=== PATIENT | male | born 1970 | race Caucasian/White ===

== ENCOUNTER → 2020-02-04 11:41 | Outpatient (BNVA) | payer BC, SELFPAY | PROVIDERS: Family Provider Nurse Practitioner; Visit Provider Nurse Practitioner Family | DX: E78.00 Pure hypercholesterolemia, unspecified (principal); I10 Essential (primary) hypertension; Z79.899 Other long term (current) drug therapy; R53.83 Other fatigue; E55.9 Vitamin D deficiency, unspecified | CPT/HCPCS: 80053; 80061; 81001; 82306; 83036; 84443; 85025 ==

== ENCOUNTER → 2021-01-12 14:32 | Outpatient (BNVA) | payer BC, SELFPAY | PROVIDERS: Family Provider Nurse Practitioner; PCP Nurse Practitioner Family; Visit Provider Nurse Practitioner Family | DX: D64.9 Anemia, unspecified (principal); Z79.899 Other long term (current) drug therapy; R53.83 Other fatigue; R33.9 Retention of urine, unspecified; Z13.6 Encounter for screening for cardiovascular disorders; I10 Essential (primary) hypertension; E55.9 Vitamin D deficiency, unspecified | CPT/HCPCS: 80053; 80061; 81003; 82306; 82607; 83036; 83550; 84439; 84443; 84481; 85025; G0103 ==

== ENCOUNTER → 2021-02-06 08:32 | Outpatient (BNVA) | payer BC, SELFPAY | PROVIDERS: Family Provider Nurse Practitioner; PCP Nurse Practitioner Family; Visit Provider Internal Medicine | DX: Z01.812 Encounter for preprocedural laboratory examination (principal); Z12.11 Encounter for screening for malignant neoplasm of colon; Z20.822 Contact with and (suspected) exposure to COVID-19 | CPT/HCPCS: 87635 ==

== ENCOUNTER 2021-02-10 08:21 | Day surgery (SDC) | payer BC, SELFPAY ==
[2021-02-08 13:34] VITALS: BMI 34.2
--- NOTE | 2021-02-10 09:02 | P.ANESASSM_ITS ---
Pre-Anesthetic Assessment Pre-Anesthetic Assessment: Height/Weight: Height 1.73 m Weight 102.058 kg Preop Diagnosis: screen Proposed Procedure: Operation Date: 02/10/21 09:45 Proposed Procedures p Colonoscopy G0121 Z12.11(Not Applicable) - Indra Milan MD Was Beta Fredo taken within 24 hours: N/A Was Clonidine taken within 24 hours: N/A Social: Social History: No alcohol and No tobacco Exam: Pre-Anes Outpt Exam: alert, oriented x 3, clear to auscultation bilaterally and regular rate & rhythm Airway: Submandibular: WNL Cervical ROM: WNL MP: 2 Dentition: Full CV/HEM: CV/HEM: Anemia and HTN GI: GI: GERD Metabolic: Metabolic: Hyperlipidemia and Morbid obesity Anesthetic Plan: ASA status: 2 Anesthesia: MAC Risk of > 500 ml blood loss (7ml/kg in children): No PFSH Anesthesia 2 PFSH: Medical History Anemia Colon cancer screening Environmental and seasonal allergies Fatigue GERD (gastroesophageal reflux disease) Hyperlipemia Hypertension Hypertension screen Incomplete bladder emptying Medication management Sinusitis Vitamin D deficiency Surgical History History of shoulder surgery History of surgery on arm Family History Brother FH: colon polyps Other Cancer Social History Smoking and tobacco status: never smoked Alcohol intake: never Data Anesthesia Cardiac Studies: No Data to Display
[2021-02-10 09:11] VITALS: BP 125/85; PULSE 56; RESP 18; TEMP 36.4; O2SAT 98
[2021-02-10] MEDS: sodium chloride 0.9% 1,000 ML 30 ML IV (09:44)
--- NOTE | 2021-02-10 09:54 | W.PM.OPSFHP ---
Same Day Surgery H&P Indication for Procedure/HPI DATE OF PROCEDURE: February 10, 2021 CHIEF COMPLAINT/INDICATIONFOR SURGICAL PROCEDURE: Screening colonoscopy PREOP DIAGNOSIS: screen PLANNED PROCEDRUE: Operation Date: 02/10/21 09:45 Proposed Procedures p Colonoscopy G0121 Z12.11(Not Applicable) - Indra Milan MD Medications/Allergies* Allergies/Adverse Reactions Allergy/AdvReac Type Severity Reaction Status Date / Time NICOLE Inhibitors AdvReac Mild ADR-Cough Verified 01/30/21 13:44 Current Medications: Generic Name Dose Route Start Last Admin Trade Name Freq PRN Reason Stop Dose Admin Sodium Chloride 1,000 mls @ 30 mls/hr 02/10/21 09:00 02/10/21 09:44 Sodium Chloride 0.9% IV 30 mls/hr .Q24H BEN Administration Pertinent History/Comorbid Conditions* Medical History (Updated 01/30/21 @ 14:16 by Indra Milan MD) Anemia Colon cancer screening Environmental and seasonal allergies Fatigue GERD (gastroesophageal reflux disease) Hyperlipemia Hypertension Hypertension screen Incomplete bladder emptying Medication management Sinusitis Vitamin D deficiency Surgical History (Updated 12/06/20 @ 09:12 by MARGARITA Rivas) History of shoulder surgery History of surgery on arm Family History (Updated 12/08/20 @ 19:51 by MARGARITA Rivas) FH: colon polyps Brother Cancer Social History Smoking and tobacco status: never smoked Alcohol intake: never Pertinent Exam Findings alert, oriented x 3, clear to auscultation bilaterally, regular rate & rhythm, operative site marked and procedure specific exam findings Recommendations Surgery/Procedure today Coding Level of Care Code 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
[2021-02-10 10:52] VITALS: BP 111/76; PULSE 60; RESP 18; TEMP 36.1; O2SAT 91
[2021-02-10 11:00] VITALS: BP 95/75; PULSE 56; RESP 18; TEMP 36.3; O2SAT 96
--- NOTE | 2021-02-10 12:49 | ANE.PACU2 ---
Inpatient post-anesthesia follow up: Airway intact: Yes Vital signs: Temperature 97.4 F Pulse Rate 56 Respiratory Rate 18 Blood Pressure 95/75 Pulse Oximetry 96 Oxygen Delivery Me thod Room Air Oxygen Flow Rate Fraction of Inspir ed Oxygen Hydration adequate: Yes Nausea and vomiting: No Pain level: 1 Mental status: Baseline
== END 2021-02-10 11:26 | disposition home or self-care (01) ==
PROVIDERS: Family Provider Nurse Practitioner; PCP Nurse Practitioner Family; Visit Provider Internal Medicine
PROC: 0DJD8ZZ Inspection of Lower Intestinal Tract, Via Natural or Artificial Opening Endoscopic (ICD-10-PCS; CPT 45378; principal; 2021-02-10 09:45)
DX: Z12.11 Encounter for screening for malignant neoplasm of colon (principal); K57.30 Diverticulosis of large intestine without perforation or abscess without bleeding; K21.9 Gastro-esophageal reflux disease without esophagitis; E78.5 Hyperlipidemia, unspecified; I10 Essential (primary) hypertension; E55.9 Vitamin D deficiency, unspecified; E66.01 Morbid (severe) obesity due to excess calories; Z68.34 Body mass index [BMI] 34.0-34.9, adult
CPT/HCPCS: 45378; 96360; 96361; J2704; J7030

== ENCOUNTER → 2023-08-20 09:35 | Outpatient (BNVA) | payer BC, SELFPAY | PROVIDERS: Family Provider Nurse Practitioner; PCP Nurse Practitioner Family; Visit Provider Nurse Practitioner Family | DX: E55.9 Vitamin D deficiency, unspecified (principal); Z79.899 Other long term (current) drug therapy; E78.5 Hyperlipidemia, unspecified; I10 Essential (primary) hypertension; E78.2 Mixed hyperlipidemia; J30.89 Other allergic rhinitis; K21.9 Gastro-esophageal reflux disease without esophagitis | CPT/HCPCS: 80053; 80061; 81003; 82306; 83036; 84443; 85025; G0103 ==

== ENCOUNTER → 2023-08-27 11:49 | Outpatient (BNVA) | payer BC, SELFPAY | PROVIDERS: Family Provider Nurse Practitioner; PCP Nurse Practitioner Family; Visit Provider Nurse Practitioner Family | DX: R31.9 Hematuria, unspecified (principal) | CPT/HCPCS: 81003; 88112 ==

== ENCOUNTER → 2024-10-13 09:51 | Outpatient (BNVA) | payer BC, SELFPAY | PROVIDERS: Family Provider Nurse Practitioner; PCP Nurse Practitioner Family; Visit Provider Nurse Practitioner Family | DX: I10 Essential (primary) hypertension (principal); E78.2 Mixed hyperlipidemia; E55.9 Vitamin D deficiency, unspecified; R53.83 Other fatigue; Z79.899 Other long term (current) drug therapy | CPT/HCPCS: 80053; 80061; 81003; 82306; 83036; 84443; 85025 ==